=== PATIENT | female | born 1985 | race Caucasian/White ===

== ENCOUNTER 2023-01-19 07:00 | Day surgery (SDC) | payer OTHER ==
[2023-01-19] VITALS (228 sets, daily range): BP systolic 82–156; BP diastolic 53–109
[~2023-01-19] VITALS: Ht 172.7 cm; Wt 84.3 kg
[2023-01-19 08:54] LABS: BASO% 0.6 % (0-3); EOS% 3.8 % (0-8); HEMATOCRIT 39.7 % (37.0-47.0); IMMATURE GRANULOCYTES 0.2 % (0.0-5.0); LYMPH% 32.4 % (15-41); MEAN CELL VOLUME 90.2 fL CALC (80.0-100.0); MEAN CORPUSCULAR HGB 29.5 pG CALC (26.0-32.0); MEAN CORPUSCULAR HGB CONC 32.7 g/dL CAL (32.0-36.0); MONO% 10.7 % (2-13); NEUT# 2.48 thou/uL (2.00-7.15); NEUT% 52.3 % (42-76); RED BLOOD COUNT 4.4 mill/uL (4.20-5.60); RED CELL DISTRI WIDTH 12.7 % (11.5-15.5)
[2023-01-19 09:36] LABS: ALBUMIN 3.6 g/dL (3.2-5.0); ALKALINE PHOSPHATASE 48 u/l (38-126); ANION GAP 10 (6-22 (CALC)); BILIRUBIN, TOTAL 0.2 mg/dL (0.02-1.3); BUN 17 mg/dL (7-17); BUN/CREATININE RATIO 26 (12-20 (CALC)); CARBON DIOXIDE 27 mmol/l (22-30); CHLORIDE 104 mmol/l (95-108); CREATININE 0.7 mg/dL (0.5-1.0); GFR FOR AFR.AMER. > 60 ML/MIN (>=60 (CALC)); GFR OTHER RACES > 60 ML/MIN (>=60 (CALC)); POTASSIUM 3.9 mmol/l (3.5-5.1); SGOT/AST 27 u/l (14-36); SODIUM 137 mmol/l (137-146); TOTAL PROTEIN 6.3 g/dL (6.3-8.2)
[2023-01-19] MEDS ORDERED: XANAX2 MG PO (09:59)
[2023-01-19] MEDS ORDERED: KLONOPIN2 MG PO (09:59)
[2023-01-19] MEDS ORDERED: ADDERALL15 MG PO (10:00)
[2023-01-19] MEDS ORDERED: NALTREXONE50 MG PO (13:00)
[2023-01-19] MEDS ORDERED: CLONIDINE0.1 MG PO (13:00)
[2023-01-20 04:00] VITALS: BP 91/54
[2023-01-20 04:01] VITALS: BP 91/54
[2023-01-20 07:58] VITALS: BP 102/58
[2023-01-20 08:10] LABS: HEMOGLOBIN 13.6 g/dl (12.0-16.0); IMMATURE GRANULOCYTES 0.2 % (0.0-5.0); MEAN CORPUSCULAR HGB 28.8 pG CALC (26.0-32.0); MEAN CORPUSCULAR HGB CONC 32.4 g/dL CAL (32.0-36.0); MONO% 6.6 % (2-13); NEUT# 8.97 thou/uL (2.00-7.15); NEUT% 84.2 % (42-76); RED BLOOD COUNT 4.72 mill/uL (4.20-5.60); RED CELL DISTRI WIDTH 12.9 % (11.5-15.5)
[2023-01-20 08:27] LABS: ALBUMIN 3.9 g/dL (3.2-5.0); ALKALINE PHOSPHATASE 51 u/l (38-126); ANION GAP 11 (6-22 (CALC)); BUN 16 mg/dL (7-17); BUN/CREATININE RATIO 24 (12-20 (CALC)); CARBON DIOXIDE 23 mmol/l (22-30); CHLORIDE 109 mmol/l (95-108); CREATININE 0.7 mg/dL (0.5-1.0); GFR FOR AFR.AMER. > 60 ML/MIN (>=60 (CALC)); GFR OTHER RACES > 60 ML/MIN (>=60 (CALC)); MAGNESIUM 2.1 mg/dL (1.6-2.3); POTASSIUM 3.5 mmol/l (3.5-5.1); SGOT/AST 28 u/l (14-36); SODIUM 140 mmol/l (137-146); TOTAL PROTEIN 6.9 g/dL (6.3-8.2)
[2023-01-20 08:29] LABS: BILIRUBIN, TOTAL 0.6 mg/dL (0.02-1.3)
[2023-01-20 10:03] VITALS: BP 102/58
[2023-01-20 11:04] VITALS: BP 107/73
== END 2023-01-20 15:48 | disposition home or self-care (01) | DRG 897 ==
LOC: ANR 07:00 → MS2 07:29 → ANR 07:29
PROVIDERS: ATTEND Anesthesiology
DX: F11.20 Opioid dependence, uncomplicated (principal)
CPT/HCPCS: J0131; J2354; J3475